=== PATIENT | male | born 1955 | race Caucasian/White ===

== ENCOUNTER 2024-05-07 10:11 | Emergency (ER) | payer MEDICARE, SELFPAY ==
[2024-05-07 10:21] VITALS: BP 130/67; PULSE 92; RESP 20; TEMP 37.4; O2SAT 97
--- NOTE | 2024-05-07 10:41 | ED.EAR ---
HPI - Ear Problem General Chief complaint: Ear Stated complaint: ear infection Time Seen by Provider: 05/07/24 10:33 Source: patient and RN notes reviewed Mode of arrival: ambulatory Limitations: no limitations History of Present Illness HPI Narrative: Patient presents today complaining of bilateral ear pain. Right started 3 days ago and left started yesterday. He is complaining of difficulty hearing bilaterally as well. He has tried Tylenol, ibuprofen, and pain ear drops without relief. Denies any recent swimming. Denies recent cold symptoms. Related Data Allergies Allergy/AdvReac Type Severity Reaction Status Date / Time No Known Allergies Allergy Verified 05/07/24 10:41 Review of Systems Review of Systems: CONSTITUTIONAL: Denies body aches, fever, chills, or sweats. EYES: Denies visual changes, redness, or discharge. ENT: Denies rhinorrhea, congestion, sore throat. + bilateral ear pain and muffling CARDIOVASCULAR: Denies chest pain, palpitations, or edema. RESPIRATORY: Denies cough or dyspnea. GASTROINTESTINAL: Denies abdominal pain, nausea, vomiting, or diarrhea. GENITOURINARY: Denies dysuria or hematuria. SKIN: Denies rash, itching, or wounds. MUSCULOSKELETAL: Denies back pain, joint pain, or myalgia. NEUROLOGIC: Denies headache, numbness, tingling, or weakness. PSYCH: Denies depression or anxiety. PMFSH Comments At time of signature, I have reviewed and agree with nursing past medical, surgical, social and family history unless otherwise noted. Please see nursing chart for further information. There is no relevant family history pertinent to the presenting complaint Exam Narrative: GENERAL: Well-appearing, well-nourished, and in no acute distress. HEAD: Normocephalic, atraumatic. EYES: EOMI. No redness or drainage. Conjunctivae normal. ENT: Mucous membranes pink and moist. Nares clear. No rhinorrhea. Bilateral ear canals are completely swollen shut. NECK: Normal AROM. Supple. No lymphadenopathy. CHEST: No respiratory distress. Clear to auscultation. HEART: Regular rate and rhythm. No murmur appreciated. EXTREMITIES: Normal range of motion. No edema. SKIN: Warm, dry, no rash. Capillary refill normal. Normal skin turgor. NEURO: No focal deficits. Alert and oriented x3. Gait steady. PSYCH: Normal affect. No signs of depression or anxiety. Course Course Level of Care: Express Care Visit Vital Signs Vital signs: Vital Signs Temperature 99.3 F 05/07/24 10:21 Pulse Rate 92 05/07/24 10:21 Respiratory Rate 20 05/07/24 10:21 Blood Pressure 130/67 05/07/24 10:21 Pulse Oximetry 97 05/07/24 10:21 Oxygen Delivery Room Air 05/07/24 10:21 Temperature 99.3 F 05/07/24 10:21 Pulse Rate 92 05/07/24 10:21 Respiratory Rate 20 05/07/24 10:21 Blood Pressure 130/67 05/07/24 10:21 Pulse Oximetry 97 05/07/24 10:21 Oxygen Delivery Room Air 05/07/24 10:21 Reviewed Procedures Other Procedure Procedure 1: Other Procedure: Ear christelle placed in bilateral ear canals. Two drops of saline applied to ear christelle to expand them. Care instructions given. Medical Decision Making MDM Narrative Medical decision making narrative: Patient has been diagnosed with otitis externa. He will be treated with Ciprodex. Anticipatory guidance given. Differential Diagnosis Differential Diagnosis: Otitis media, otitis externa, ruptured TM, serous otitis, cerumen impaction Vital Signs Vital Signs: Vital Signs Temperature 99.3 F 05/07/24 10:21 Pulse Rate 92 05/07/24 10:21 Respiratory Rate 20 05/07/24 10:21 Blood Pressure 130/67 05/07/24 10:21 Pulse Oximetry 97 05/07/24 10:21 Oxygen Delivery Room Air 05/07/24 10:21 Temperature 99.3 F 05/07/24 10:21 Pulse Rate 92 05/07/24 10:21 Respiratory Rate 20 05/07/24 10:21 Blood Pressure 130/67 05/07/24 10:21 Pulse Oximetry 97 05/07/24 10:21 Oxygen Delivery Room Air 05/07/24 10:21
== END 2024-05-07 10:57 | disposition home or self-care (01) ==
PROVIDERS: Emergency Provider Nurse Practitioner
DX: H60.503 Unspecified acute noninfective otitis externa, bilateral (principal)
CPT/HCPCS: 99213; G0463

== ENCOUNTER 2025-06-05 16:26 | Emergency (ER) | payer MEDICARE, SELFPAY ==
--- OUTSIDE RECORDS SUMMARY | 2025-06-05 16:30 | XMS_ITS | Clinical Summary ---
Author Organization [facility] Medical Office Building [address] Address [address] [place] [address] Care Team Providers Care Service Unit Operator Oil Well Name Role Phone Rodger Deras MD Primary Care Provider [phone] Allergies No known active allergies Medications naproxen sodium 220 mg capsule Take by mouth. Active meloxicam (MOBIC) 15 mg tablet TAKE 1 TABLET(15 MG) BY MOUTH DAILY 30 tablet 07/08/2018 Active Surgical History Surgery Date Site/Laterality Comments VASECTOMY Family History Medical History Relation Name Comments Diabetes Mother Relation Name Status Comments Mother Social History Tobacco Use Types Packs/Day Years Used Date Smoking Tobacco: Never Smokeless Tobacco: Never Alcohol Use Standard Drinks/Week Comments Yes 0 (1 standard drink = 0.6 oz pur e alcohol) Personal Safety Answer Date Recorded Getting School Help Needed Not on file 01/04 Sex and Gender Information Value Date Recorded Sex Assigned at Not on file 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 Gender Identity Not on file Sexual Orientation Not on file Obstetrics History Last Filed Vital Signs Vital Sign Reading Time Taken Comments Blood Pressure 124/77 07/09/2018 8:39 AM CDT Pulse 74 07/09/2018 8:39 AM CDT Temperature - - Respiratory Rate - - Oxygen Saturation - - Inhaled Oxygen Concentration - - Weight 61.2 kg (135 lb) 07/09/2018 8:39 AM CDT Height 170.2 cm (5' 7) 07/09/2018 8:39 AM CDT Body Mass Index 21.14 07/09/2018 8:39 AM CDT Plan of Treatment Not on file Insurance [employer] OPEN ACCESS Member Subscriber Plan / Payer (Ef fective 2015-Present) Name:Giovanni Adamsagustin Wu Relation to Subscriber:Spouse Name:Maggie Adams Date of :1960 (Home) (Work) Address: [address] [place] [address] Payer ID:[id number] Type:[employer] HMO/PPO Address: [employer] CLAIMS [address] [place] [address] Care Teams Service Unit Operator Oil Well Relationship Specialty Start Date End Date Rodger Deras MD PCP - General Internal Medicine 04/03/18
--- OUTSIDE RECORDS SUMMARY | 2025-06-05 16:30 | XMS_ITS | Continuity of Care Document ---
Author Organization [facility] Health Address [address] [place] [address] Phone Care Team Providers Care Shop Foreman Name Role Phone Rodger Deras MD Unavailable Unavailable Allergies, Adverse Reactions, Alerts Substance Reaction Status Criticality No Known Drug Allergies Other Active No I nformation Medications Medication Instructions Dosage Effective Dates (start - stop) Status Comments permethrin 5 % topical cream apply by topical route (thoroughly massage into skin from head to soles of feet) once leave on for 8-14 hr, then remove by thorough washing 0.00 - No Longer Active Advance Directives Directive Yes / No Effective Date File Name No Information Encounters Encounter Description Practice Location Reason(s) For Visit Diagnoses Date Provider Providers Copied on Encounter [facility], [address], [place], [place], [address] , tel: [phone] [facility] No Information 5 Braeden Soaers. [address] [facility] [address], [place], [place], [address] , [place]. tel: [phone] [facility], [address], [place], [place], [address] , [place] tel: [phone] [facility] No Information [address]. [address] [place] [address], [facility] [address], [place], [place], [address] . tel: [phone] [facility], [address], [place], [address] , [place] tel: [phone] [facility] No Information 1 Montserrat Ram. [address] [facility], [address], [place], [place], [address] , . tel: [phone] [employer] [facility], [address], [place], [place], [address] , tel: [phone] [facility] TOBACCO USE DISORDERVACCINATION FOR DTP-DTAPHYPERLIPIDEM IA NEC/NOSLONG-TERM USE MEDS NECSCRN MALIG NEOP-PROSTATEESOPHAG EAL REFLUXMALAISE AND FATIGUE NEC May-201 0 Braeden Soares. [address] [place] [address], [address], [place], [place], [address] , . tel: [phone] [facility], [address], [place], [place], [address] , tel: [phone] [facility] No Information Sep-0 7 Montserratsabine Ram. [address] [place] [address], [address] , [place], [place], [address] , . tel: [phone] [facility], [address], [place], [place], [address] , tel: [phone] [facility] CARPAL TUNNEL SYNDROMEROUTINE MEDICAL EXAMSCREEN-CARDIOVAS C NECCHR AIRWAY OBSTRUCT NEC Sep-0 200 7 Braeden Soares. [address] [place] [address], [address] , [place], [place], [address] , . tel: [phone] Family History Family Member Type Diagnosis Age At Onset No Information Immunizations Vaccine Date Status Comments 27837 - Tetanus_Diptheria_Pertussis_Tdap administered Source: Source Unspecified Payers Payer name Insurance type Covered libertarian ID Authoriza tion(s) No Information Social History Type Description Quantity Date Captured Comments Sex Male Smoking Status No Information Chief Complaint And Reason For Visit No Information Reason For Referral Reason For Referral No Information History Of Present Illness Encounter Date Complaint History Of Prese nt Illness No Information Functional Status Date Functional Assessmen t No Information Instructions Date Instruction Additional Infor mation No Information Assessments Type Assessment Date No Information Patient Care Teams Name Effective Dates (start - stop) Status Members No Information
--- OUTSIDE RECORDS SUMMARY | 2025-06-05 16:33 | XMS_ITS | Continuity of Care Document ---
Author Organization [facility] Health Address [address] [place] [address] Phone Care Team Providers Care Technical Account Executive Name Role Phone Rodger Deras MD Unavailable [...] Diagnoses Date Provider Providers Copied on Encounter [facility], [address], [place], [place], [address] , tel: [phone] [facility] No Information 5 Braeden Soares. [address] [facility] [address], [place], [place], [address] , [place]. tel: [phone] [facility], [address], [place], [place], [address] , [place] tel: [phone] [facility] No Information [address] [place] [address], [facility] [address], [place], [place], [address] . tel: [phone] [facility], [address], [place], [address] , [place] tel: [phone] [facility] No Information 1 Montserrat Ram. [address] [facility], [address], [place], [place], [address] , . tel: [phone] [employer], [address], [place], [place], [address] , tel: [phone] [facility] TOBACCO USE DISORDERVACCINATION FOR DTP-DTAPHYPERLIPIDEM IA NEC/NOSLONG-TERM USE MEDS NECSCRN MALIG NEOP-PROSTATEESOPHAG EAL REFLUXMALAISE AND FATIGUE NEC May-201 0 Braeden Soares. [address] [place] [address], [address], [place], [place], [address] , . tel: [phone] [facility], [address], [place], [place], [address] , tel: [phone] [facility] No Information Sep-0 7 Montserratsabine Ram. [address] [place] [address], [address] , [place], [place], [address] , . tel: [phone] [facility], [address], [place], [place], [address] , tel: [phone] [facility] CARPAL TUNNEL SYNDROMEROUTINE MEDICAL EXAMSCREEN-CARDIOVAS C NECCHR AIRWAY OBSTRUCT NEC Sep-0 200 7 Braeden Soares. [address] [place] [address], [address] , [place], [place], [address] , . tel: [phone] Family History Family Member Type Diagnosis Age At Onset No Information Immunizations Vaccine Date Status Comments 32223 - Tetanus_Diptheria_Pertussis_Tdap administered Source: Source Unspecified Payers [...]
[2025-06-05 16:34] VITALS: BP 129/84; PULSE 96; RESP 20; TEMP 36.9; O2SAT 96
--- NOTE | 2025-06-05 17:09 | ED_ITS ---
HPI - Wound/Laceration General Chief Complaint: Wound/Laceration Stated Complaint: Laceration to Left Thumb Time Seen by Provider: 06/05/25 17:10 Source: patient Mode of arrival: ambulatory Limitations: no limitations History of Present Illness HPI narrative: 69 yo M presents with flap like laceration to L thumb. CMS intact. Cut himself over 24 hours ago on precipitating saw. Bleeding controlled. Tetanus UTD. All systems reviewed and negative except as noted above. Related Data Allergies Allergy/AdvReac Type Severity Reaction Status Date / Time No Known Allergies Allergy Verified 06/05/25 16:41 PMFSH Comments At time of signature, agree with nursing past medical, surgical, social and family history. There is no relevant family history pertinent to the presenting complaint. Exam Narrative: GENERAL: This is a well-nourished, well-developed patient, in no apparent distress. HEAD: normocephalic, atraumatic. EYES: PERRL. Sclera clear/white. Vision is grossly intact. EARS: External ears normal NOSE: External nose normal NECK: Neck supple, non-tender without lymphadenopathy, masses or thyromegaly. CARDIOVASCULAR: Regular rate and rhythm without murmurs, gallops, or rubs. RESPIRATORY: Clear to auscultation. Breath sounds equal bilaterally. No wheezes, rales, or rhonchi. SKIN: warm, Dry, intact with no suspicious lesions or rash, good texture and turgor. NEURO: awake, alert, and oriented to person, place and time. There were no obvious focal neurologic abnormalities. EXTREMITIES: Tenderness to distal aspect of left thumb with mild swelling. Flap like laceration to medial aspect. Flap is dusky. Bleeding controlled. No nail damage. Course Course Level of Care: Express Care Visit Vital Signs Vital signs: Vital Signs Temperature 36.9 C 06/05/25 16:34 Pulse Rate 96 06/05/25 16:34 Respiratory Rate 20 06/05/25 16:34 Blood Pressure 129/84 06/05/25 16:34 Pulse Oximetry 96 06/05/25 16:34 Oxygen Delivery Room Air 06/05/25 16:34 Temperature 36.9 C 06/05/25 16:34 Pulse Rate 96 06/05/25 16:34 Respiratory Rate 20 06/05/25 16:34 Blood Pressure 129/84 06/05/25 16:34 Pulse Oximetry 96 06/05/25 16:34 Oxygen Delivery Room Air 06/05/25 16:34 reviewed Procedures Laceration Laceration 1: Date: 06/05/25 Time: 17:00 Site: hand (thumb) Side (If applicable): left Size (cm): 1.5 Description: flap and irregular ====== Skin Level ====== Skin layer closed with: steri strips ====== Subcutaneous Layer ====== ====== Muscle Layer ====== ====== Tendon Layer ====== Dressing: tube gauze dressing applied MDM - Wound/Laceration MDM Narrative Medical decision making narrative: pt reports thumb crushed multiple times by precipitating saw. tender on palpation. refused xray. superficial flap laceration repaired with steri strips. CMS intact. abx given to prevent wound infection. Discharge Plan Discharge Clinical Impression: Laceration of left thumb Qualifiers: Encounter type: initial encounter Damage to nail status: without damage Foreign body presence: without foreign body Qualified Code(s): S61.012A - Laceration without foreign body of left thumb without damage to nail, initial encounter Patient Disposition: Home Condition: Stable Instructions: Antibiotic Form, Finger Laceration (ED), Skin Adhesive Strips (ED) Additional Instructions: Take antibiotic as prescribed to prevent wound infection. Keep Steri-Strips dry. If they become wet pat dry with towel. Do not pull or pick at Steri-Strips. Let them fall off on their own. Follow-up with your primary care physician as needed. Patient Language: Hong Konger Prescriptions: New cephalexin 500 mg capsule 500 mg PO Q12H 7 Days Qty: 14 0RF Follow-up/Referrals: PHYSICIAN,PHOTOGRAPH ENLARGER [Primary Care Provider] - Time of Disposition: 17:24
== END 2025-06-05 17:34 | disposition home or self-care (01) ==
PROVIDERS: Emergency Provider Nurse Practitioner Family
DX: S61.012A Laceration without foreign body of left thumb without damage to nail, initial encounter (principal); W27.0XXA Contact with workbench tool, initial encounter
CPT/HCPCS: 99213; G0463